=== PATIENT | female | born 1945 | race Caucasian/White ===

== ENCOUNTER 2018-01-01 09:28 | Day surgery (SDC) | payer MEDICARE, OTHER ==
[2017-12-30 14:19] VITALS: BMI 25.7
[~2018-01-01 09:28] MED LIST: HYDROmorphone 0.5 MG/0.5 ML SYRINGE IVP PRN; LACTATED RINGERS 1,000 ML IV SCH; LIDOCAINE 1% 20 ML VIAL (10MG/ML) FOR IV START INTRADERMA PRN; ONDANSETRON 4 MG/2 ML VIAL IVP PRN
[2018-01-01] MEDS ORDERED: LIDOCAINE 1% 20 ML VIAL (10MG/ML) FOR IV START INTRADERMA ONE (09:44)
[2018-01-01 09:46] VITALS: RESP 16; TEMP 97.6
[2018-01-01 09:47] LABS: Glucose,Whole Blood 110 mg/dL (75-99)
[2018-01-01] MEDS ORDERED: LIDOCAINE 1% INJ 10MG/ML (20 ML MDV) ONE (09:56)
[2018-01-01] MEDS ORDERED: PROPOFOL 10 MG/ML 20 ML VIAL IV ONE (09:56)
--- NOTE | 2018-01-01 10:16 | P.PCN ---
Date of Procedure: 01/01/18 Procedure(s) Performed: Brief history: Patient is a pleasant 72-year-old white female, scheduled for an elective upper endoscopy as well as colonoscopy as a part of evaluation of a history of GERD/ surveillance of Mijares's esophagus. She also has prior history of colon polyps was 5 years ago. Procedure performed: Esophagogastroduodenoscopy with biopsy Colonoscopy Preoperative diagnosis: GERD/Mijares's esophagus History of colon polyps Anesthesia: [facility] Procedure: After informed consent was obtained from the patient was brought into the endoscopy unit and IV sedation was administered by anesthesia under continuous monitoring. Initially upper endoscopy was done. The Olympus GF 160 video endoscope was inserted inserted into the mouth and esophagus intubated without any difficulty and was gradually advanced into the stomach and duodenum and carefully examined. The bulb and second part of the duodenum appeared normal. The scope was then withdrawn into the stomach adequately insufflated with air and upon careful examination the antrum and body, cardia and fundus appeared normal. The scope was then withdrawn into the esophagus. Small sliding hiatal hernia noted. The GE junction was located at 38 cm to the incisors. It appeared regular with no erythema erosions or ulcerations. There was a 1 cm length of Mijares's-appearing mucosa which was biopsied. Rest of the esophagus appeared normal. Patient tolerated the procedure well. At this time the patient continued to remain sedation. Initial digital rectal examination was normal. Olympus CF 160 video colonoscope was then inserted into the rectum and gradually advanced to the cecum without any difficulty. Careful examination was performed as the scope was gradually being withdrawn. The prep was excellent. The cecum, ascending colon, transverse colon, descending colon, sigmoid colon and rectum appeared normal. Scattered sigmoid diverticulosis seen. Retroflexion was performed in the rectum and no lesions were noted. Patient tolerated the procedure well. Impression: 1. Upper endoscopy revealed short segment Mijares's esophagus and small hiatal hernia 2. Colonoscopy revealed scattered similar diverticulosis but no evidence of colorectal neoplasia. Recommendations: Findings of this examination were discussed with the patient as well as her family. She was advised to follow with the biopsy results. If the biopsy shows no evidence of dysplasia, she can have a repeat upper endoscopy in 2-3 years. She was recommended to have a repeat surveillance colonoscopy in 5 is from now because of the prior history of colon polyps.
[2018-01-01 10:40] VITALS: BP 127/73; PULSE 75
== END 2018-01-01 11:03 | disposition home or self-care (01) ==
LOC: ORWHC2ENDO 09:28
PROVIDERS: ATTEND Internal Medicine Gastroenterology
DX: K22.70 Barrett's esophagus without dysplasia (principal); K21.9 Gastro-esophageal reflux disease without esophagitis; K57.30 Diverticulosis of large intestine without perforation or abscess without bleeding; K44.9 Diaphragmatic hernia without obstruction or gangrene; I10 Essential (primary) hypertension; C50.919 Malignant neoplasm of unspecified site of unspecified female breast; E78.5 Hyperlipidemia, unspecified; G43.909 Migraine, unspecified, not intractable, without status migrainosus; E11.9 Type 2 diabetes mellitus without complications; Z79.82 Long term (current) use of aspirin; Z88.8 Allergy status to other drugs, medicaments and biological substances; Z87.891 Personal history of nicotine dependence; Z79.899 Other long term (current) drug therapy; Z86.010 Personal history of colon polyps; Z79.84 Long term (current) use of oral hypoglycemic drugs; Z79.811 Long term (current) use of aromatase inhibitors
CPT/HCPCS: 88305; 45378; 43239; J2001; J2704

== ENCOUNTER → 2019-08-24 | Outpatient (CLI) | payer MEDICARE ==
[2019-08-24 14:02] LABS: HCT 46.3 % (34.0-46.0); MCH 30.3 pg (25.0-35.0); MCHC 32.5 g/dL (31.0-37.0); MCV 93.4 fL (80.0-100.0); Mean Platelet Volume 6.8; Platelet Count 248 k/uL (150-450); RBC 4.96 m/uL (3.80-5.40); RDW 12.8 % (11.5-15.5); WBC 10.1 k/uL (3.8-10.6)
[2019-08-24 19:42] LABS: % Iron Saturation 30.08 (12.00-45.00); African American GFR (CKD) 84.2 (60.0-200.0); Albumin 4.5 g/dL (3.80-4.90); Albumin/Globulin Ratio 1.8 (1.60-3.17); Anion Gap 9.6 mmol/L (4.00-12.00); BUN/Creat Ratio 31.25 Ratio (12.00-20.00); Calcium 9.4 mg/dL (8.7-10.3); Carbon Dioxide 24.4 mmol/L (21.6-31.8); Globulin 2.5 g/dL (1.6-3.3); Non-African American GFR(CKD) 72.6 (60.0-200.0); Total Bilirubin 0.3 mg/dL (0.2-1.2)
[2019-08-24 19:51] LABS: Ferritin 35.9 ng/mL (10.0-291.0)
== END | disposition home or self-care (01) ==
LOC: LABWHC1 13:28
PROVIDERS: ATTEND Internal Medicine Cardiovascular Disease
DX: E85.4 Organ-limited amyloidosis (principal); I43 Cardiomyopathy in diseases classified elsewhere; I25.10 Atherosclerotic heart disease of native coronary artery without angina pectoris
CPT/HCPCS: 36415; 80053; 82728; 83540; 83550; 84166; 84443; 85027; 86335

== ENCOUNTER → 2019-12-31 | Day surgery (SDC) | payer MEDICARE ==
[2019-12-29 15:40] VITALS: BMI 28.3
[~2019-12-31] MED LIST changes: -HYDROmorphone 0.5 MG/0.5 ML SYRINGE IVP PRN; +IV FLUID CONTINUATION 1,000 ML IV ONE; +LACTATED RINGERS 1,000 ML IV ONE; -LIDOCAINE 1% 20 ML VIAL (10MG/ML) FOR IV START INTRADERMA PRN; +LIDOCAINE 1% INJ 10MG/ML (20 ML MDV) ONE; -ONDANSETRON 4 MG/2 ML VIAL IVP PRN; +PROPOFOL 10 MG/ML 20 ML VIAL IV ONE
[2019-12-31 08:37] VITALS: RESP 16; TEMP 96.6
[2019-12-31 08:39] LABS: Glucose,Whole Blood 113 mg/dL (75-99)
--- NOTE | 2019-12-31 09:05 | P.PCN ---
Date of Procedure: 12/31/19 Procedure(s) Performed: BRIEF HISTORY: Patient is a 74-year-old, pleasant, white female scheduled for an upper endoscopy as part of evaluation of GERD and surveillance of Mijares's esophagus. She remains on Protonix 40 mg daily and Pepcid 20 mg at bedtime. Her last EGD was 2 years ago that revealed short segment Mijares's esophagus.. PROCEDURE PERFORMED: Esophagogastroduodenoscopy with biopsy PREOPERATIVE DIAGNOSIS: Surveillance of Mijares's esophagus. IV sedation per anesthesia. PROCEDURE: After informed consent was obtained, the patient was brought into the endoscopy unit. IV sedation was administered by Anesthesia under continuous monitoring. Initially the Olympus GIF-140 video endoscope was inserted into the mouth. Esophagus intubated without any difficulty. It was gradually advanced into the stomach and duodenum and carefully examined. The bulb and the second part of the duodenum appeared normal. The scope at this time was withdrawn to the stomach, adequately insufflated with air, and upon careful examination, mucosa of the antrum revealed mild diffuse gastritis with erosions and biopsies were done from this area. Mucosa of the, body, cardia and the fundus appeared normal. The scope was then withdrawn into the esophagus. Moderate size hiatal hernia noted. The GE junction was located at 34 cm from the incisors. It was a short tongue of Mijares's appearing mucosa extending 5 mm proximal to the GE junction which was biopsied The rest of the esophagus appeared normal. There were no erosions or ulcerations seen and the patient tolerated the procedure well. IMPRESSION: 1. Moderate size hiatal hernia. 2. Short segment Mijares's esophagus status post biopsy. 3. Mild antral gastritis RECOMMENDATIONS: The findings of this examination were discussed with the patient as well as her family. She was advised to follow with the biopsy results. She will continue with Protonix 40 mg daily and Pepcid at bedtime and follow antireflux measures. She can have a repeat surveillance upper endoscopy in 2-3 years based on the biopsy.
[2019-12-31 09:22] VITALS: BP 104/56; PULSE 76
== END ==
LOC: ORWHC2ENDO 08:09
PROVIDERS: ATTEND Internal Medicine Gastroenterology
DX: K29.50 Unspecified chronic gastritis without bleeding (principal); K22.70 Barrett's esophagus without dysplasia; K25.9 Gastric ulcer, unspecified as acute or chronic, without hemorrhage or perforation; K44.9 Diaphragmatic hernia without obstruction or gangrene; K21.9 Gastro-esophageal reflux disease without esophagitis; E11.9 Type 2 diabetes mellitus without complications; I10 Essential (primary) hypertension; E78.5 Hyperlipidemia, unspecified; G43.909 Migraine, unspecified, not intractable, without status migrainosus; Z88.8 Allergy status to other drugs, medicaments and biological substances; Z79.1 Long term (current) use of non-steroidal anti-inflammatories (NSAID); Z79.899 Other long term (current) drug therapy; Z79.84 Long term (current) use of oral hypoglycemic drugs; Z86.79 Personal history of other diseases of the circulatory system; Z91.89 Other specified personal risk factors, not elsewhere classified
CPT/HCPCS: 43239; 88305; J2001; J2704

== ENCOUNTER → 2021-10-19 | Outpatient (CLI) | payer MEDICARE | END | disposition home or self-care (01) | LOC: LABPAT 10:32 | PROVIDERS: ATTEND Orthopaedic Surgery | DX: Z01.812 Encounter for preprocedural laboratory examination (principal); M16.11 Unilateral primary osteoarthritis, right hip; Z22.322 Carrier or suspected carrier of Methicillin resistant Staphylococcus aureus | CPT/HCPCS: 86850; 86900; 86901; 87070 ==

== ENCOUNTER 2021-10-29 10:49 | Day surgery (SDC) | payer MEDICARE ==
--- NOTE | 2021-10-29 08:13 | HP ---
HISTORY AND PHYSICAL DATE OF SURGERY: 10/29/2021. HISTORY OF PRESENT ILLNESS: Fay Antonio is a 76-year-old patient seen with progressive right hip pain. We discussed options. She elected to proceed with direct anterior total hip arthroplasty. Consent was obtained. Medical and cardiac clearances were provided. PAST MEDICAL HISTORY: Hypertension, hyperlipidemia, and uej-[id number]-jupgmcyvv diabetes. PAST SURGICAL HISTORY: Breast reduction surgery, cataract surgery, hysterectomy, total knee arthroplasty, knee arthroscopy, and abdominal surgery. DAILY MEDICATIONS: 1. Celebrex. 2. Flonase. 3. Lovastatin. 4. Metformin. 5. Metoprolol. ALLERGIES: None reported. SOCIAL HISTORY: She denies tobacco use. PHYSICAL EVALUATION OF THE RIGHT HIP: Her range of motion is limited with severe pain. There is diffuse tenderness. Positive hip impingement sign. Straight-leg raise is negative. Distal neurovascular exam is intact. RADIOGRAPHS OF THE RIGHT HIP: Revealed osteoarthritic changes. IMPRESSION: 1. Right hip osteoarthritis. 2. Hypertension. 3. Hyperlipidemia. 4. Iks-dyhzsjg-cffmebadc diabetes. PLAN: Direct anterior right total hip arthroplasty. MMODL / IJN: [id number] /
[~2021-10-29 10:49] MED LIST changes: +ACETAMINOPHEN TAB 500 MG TAB PO PRN; +DEXAMETHASONE SOD PHOSPHATE 4 MG/ML 1 ML VIAL IV ONE; +HYDROmorphone 0.5 MG/0.5 ML SYRINGE IVP PRN; -IV FLUID CONTINUATION 1,000 ML IV ONE; -LACTATED RINGERS 1,000 ML IV ONE; -LIDOCAINE 1% INJ 10MG/ML (20 ML MDV) ONE; +MELOXICAM 7.5 MG TAB PO PRN; +MIDAZOLAM 2 MG/2 ML VIAL IV PRN; +ONDANSETRON 4 MG/2 ML VIAL IVP ONE; -PROPOFOL 10 MG/ML 20 ML VIAL IV ONE; +TRANEXAMIC ACID IN NACL,ISO-OS 1,000 MG in SALINE 1 100ML.BAG IVPB PRN
[2021-10-29 12:01] LABS: Glucose,Whole Blood 101 mg/dL (70-110)
[2021-10-29] MEDS ORDERED: fentaNYL (PF) 50 MCG/ML 2 ML AMP IV ONE (12:15)
[2021-10-29] MEDS ORDERED: ROPIVACAINE 5 MG/ML 20 ML AMPULE ONE (12:28)
[2021-10-29] MEDS ORDERED: LIDOCAINE 2% INJ 20 MG/ML (2 ML VIAL) ONE (12:28)
[2021-10-29] MEDS ORDERED: TRANEXAMIC ACID IN NACL,ISO-OS 1,000 MG/100 ML BAG ONE (12:28)
[2021-10-29] MEDS ORDERED: PROPOFOL 10 MG/ML 20 ML VIAL IV ONE (12:28)
[2021-10-29] MEDS ORDERED: GLYCOPYRROLATE 0.2 MG/ML 2 ML VIAL ONE (12:28)
[2021-10-29] MEDS ORDERED: PHENYLEPHRINE-0.9% NACL SYG 1,000 MCG/10 ML SYRINGE ONE (12:28)
[2021-10-29] MEDS ORDERED: ROCURONIUM 10 MG/ML (5 ML VIAL) IV ONE (12:28)
[2021-10-29] MEDS ORDERED: fentaNYL (PF) 50 MCG/ML 2 ML AMP ONE (12:28)
[2021-10-29] MEDS ORDERED: NEOSTIGMINE 1 MG/ML 10 ML VIAL ONE (12:28)
[2021-10-29] MEDS ORDERED: SUCCINYLCHOLINE CHLORIDE 200 MG/10 ML VIAL IV ONE (12:28)
--- NOTE | 2021-10-29 13:05 | P.ANPRN ---
Procedure Note - Anesthesia - Nerve Block Performed Right Erector Spinae Single Time Out Performed: Yes (1214) Date of Procedure: 10/29/21 Procedure Start Time: 12:15 Procedure Stop Time: 12:19 Location of Patient: PreOp Indication: Acute Post-Operative Pain, Requested by Surgeon Specifically requested for management of pain by : Toney Hanna Sedation Type: Sedate with meaningful contact maintained Preparation: Sterile Prep Position: Sitting Catheter: None Needle Types: Pajunk Needle Gauge: 21 Ultrasound used to visualize needle placement: Yes Ultrasound used to observe medication spread: Yes Injectate: 0.5% Ropivacaine (see comment for volume) (30cc) Blood Aspirated: No Pain Paresthesia on Injection Noted: No Resistance on Injection: Normal Image Stored and Saved: Yes Events: Uneventful and Well Tolerated
[2021-10-29] MEDS ORDERED: ceFAZolin 1,000 MG in SODIUM CHLORIDE 0.9% 1,000 ML IRRIGATION ONE (13:43)
--- NOTE | 2021-10-29 13:53 | FL ---
Intraoperative/procedural fluoroscopic services were provided for right total hip arthroplasty. Hardw are appears intact with appropriate alignment.. Total fluoroscopy time is 14 seconds with a total of 3 submitted images to PACS. Please see the operative note for further details.
[2021-10-29] MEDS ORDERED: HYDROmorphone 0.5 MG/0.5 ML SYRINGE IVP PRN ×3 (14:02)
[2021-10-29] MEDS ORDERED: NALOXONE 0.4 MG/ML 1 ML VIAL IV PRN (14:02)
[2021-10-29] MEDS ORDERED: HYDROcodone/APAP 7.5-325MG 1 EACH TAB PO PRN (14:02)
[2021-10-29] MEDS ORDERED: HYDROcodone/APAP 5-325MG 1 EACH TAB PO PRN (14:02)
[2021-10-29] MEDS ORDERED: ONDANSETRON 4 MG/2 ML VIAL IVP PRN (14:02)
--- NOTE | 2021-10-29 14:02 | P.OP ---
Date of Procedure: 10/29/21 Preoperative Diagnosis: Right hip osteoarthritis Postoperative Diagnosis: Right hip osteoarthritis Procedure(s) Performed: Direct anterior right total hip arthroplasty Implants: 1. Depuy Corail 135 standard with collar size 8 press-fit femoral stem 2. Depuy pinnacle 48 mm press-fit acetabular shell 3. Depuy pinnacle neutral polyethylene acetabular liner 48 mm OD 32 mm ID 4. Biolox delta ceramic femoral head +1 32 mm Anesthesia: GETA, regional (erector spinae block) Surgeon: Toney Hanna Shore Hand Dredge Or Barge #1: Mart Mathias Estimated Blood Loss (ml): 75 Pathology: other (Femoral head) Condition: stable Disposition: PACU Indications for Procedure: 76-year-old patient seen with symptomatic right hip osteoarthritis. After treatment options were discussed, she elected to proceed with total hip arthroplasty. Operative Findings: See description of procedure Description of Procedure: The patient was taken to the operative suite after having an erector spinae block performed by the department of anesthesia for postoperative pain management. Patient underwent a general anesthetic by the department of anesthesia. Patient was then transferred to the Burton table. Patient was given preoperative IV antibiotics and TXA. Both lower extremities were placed in standard leg spars. The hip was then prepped and draped in the normal sterile orthopedic fashion. A standard anterior incision was made beginning 3 cm lateral and 1 cm distal to the ASIS extending 10 cm. Dissection was then carried down through the subcutaneous soft tissues down to the fascia overlying the tensor fascia rubina. An incision was now made through the fascia. Careful dissection was taken down exposing the tensor fascia rubina muscle. A Cobra retractor was now placed along the medial femoral neck and a second one along the lateral femoral neck. The venous circumflex vessels were now identified, cauterized and clipped. We identified the anterior hip capsule. An incision was made through the hip capsule along the lateral border. I performed a partial anterior capsulectomy. Retractors were now placed around the femoral neck itself. A femoral neck cut was now made with a sagittal saw. It was completed with an osteotome at the lateral neck area. The femoral head was now removed without difficulty. The extremity was now rotated to 60 of external rotation. It was locked in position. Residual labrum was now debrided out. Serial reaming was performed of the acetabulum while Alex LOJA assisted holding an anterior retractor for exposure. Once we reached the appropriate size and a trial was position and fit nicely. The appropriate size was now chosen opened and made available. It was introduced into the acetabulum without difficulty. The C-arm/fluoroscopy was now brought into the operative field. We made sure we had a true AP pelvic view. We now under direct C-arm/fluoroscopy introduced into the acetabular component with appropriate version and inclin ation. I held the cup in appropriate position well Alex LOJA used a mallet to seat the acetabular component. I noted the component now to be well seated and stable. Acetabular cup introduce her was removed. The C-arm was pulled back. An appropriate liner was introduced and clicked into position. It was felt to be stable. At this point retractors were removed. The extremity was now placed into 130 external rotation with no traction. The leg was now dropped to the ground and adducted. Appropriate retractors were now positioned along the proximal femur. We also placed our femoral look into position. Additional capsular releasing was performed to gain access to the proximal femur. We now used a box osteotome. A canal finder was now utilized. Serial broaching was now performed with the assistance of Alex LOJA tapping the broaches down with a mallet while held the broach in appropriate rotation and position. This was done until we reached the appropriate size with good overall rotational stability. Appropriate calcar planing was performed. A trial head/neck was placed into position. The hip was now reduced. The C- arm/fluoroscopy was brought back into the operative field. I obtained an AP pelvis which demonstrated adequate leg length alignment. The trial components appeared adequately sized and adequately positioned. The C-arm/fluoroscopy was pulled back. Retractors were repositioned and the hip was dislocated. The leg was again taken down to the ground and adducted. Appropriate retractors were repositioned as well as the femoral hook. All trial components were removed. The femoral implant was opened along with the femoral head. The femoral implant was introduced on the appropriate handle into our pre-broached area. I held the component position well Alex LOJA used a mallet to seat the femoral component. The femoral component was now noted to be well seated and stable.. The femoral head was introduced with good positioning and fixation noted. Retractors were now removed. The hip was now reduced. There appeared be good positioning of the hip confirmed on intraoperative fluoroscopy. Spot films were obtained to document this. A second gram of TXA was given. The deep and superficial soft tissues were infiltrated with local analgesic. Bipolar cautery had been utilized intermittently through the procedure for hemostasis. The wound was irrigated copiously with pulse lavage mechanical irrigation. The fascia was repaired with Vicryl suture. The subcutaneous soft tissues were repaired in layers with Vicryl suture. The skin was approximated with pernio/Dermabond. Sterile dressings were applied. Patient was then awakened, transferred to a bed and taken to recovery in stable condition. Alex LOJA assisted with the complex procedure.
[2021-10-29 14:32] VITALS: TEMP 97
[2021-10-29] MEDS: LACTATED RINGERS 1,000 ML IV ONE ×2 (15:21→15:33)
--- NOTE | 2021-10-29 15:32 | XR ---
EXAMINATION TYPE: XR Hip Limited RT DATE OF EXAM: 10/29/2021 Comparison: None Clinical History: 76-year-old female Rt. Hip-Ant Findings: 14 seconds of fluoroscopy time was provided during anterior right hip replacement. 3 images are provi ded. Impression: Intraoperative fluoroscopy during right hip total arthroplasty.
[2021-10-29 17:07] VITALS: BP 148/84; PULSE 77; RESP 15
== END 2021-10-29 17:34 | disposition home health service (06) ==
LOC: OR 10:49
PROVIDERS: ATTEND Orthopaedic Surgery
DX: M16.11 Unilateral primary osteoarthritis, right hip (principal); G89.18 Other acute postprocedural pain; I10 Essential (primary) hypertension; E11.69 Type 2 diabetes mellitus with other specified complication; E78.5 Hyperlipidemia, unspecified; E11.42 Type 2 diabetes mellitus with diabetic polyneuropathy; K21.9 Gastro-esophageal reflux disease without esophagitis; G43.909 Migraine, unspecified, not intractable, without status migrainosus; K58.9 Irritable bowel syndrome, unspecified; Z88.8 Allergy status to other drugs, medicaments and biological substances; Z79.84 Long term (current) use of oral hypoglycemic drugs; Z79.899 Other long term (current) drug therapy; Z87.891 Personal history of nicotine dependence
CPT/HCPCS: 97110; 97161; 64999; 88300; 73501; 27130; C1776; J2250; J0330; J1100; J2710; J0690 ×2; J2405; J3010; J2370; J2704; J1170; J2795; J2001; 86850; 86900; 86901; 87070

== ENCOUNTER 2022-08-06 08:35 | Day surgery (SDC) | payer MEDICARE ==
[2022-08-02 17:20] VITALS: BMI 28.3
[~2022-08-06 08:35] MED LIST changes: -ACETAMINOPHEN TAB 500 MG TAB PO PRN; -DEXAMETHASONE SOD PHOSPHATE 4 MG/ML 1 ML VIAL IV ONE; -HYDROmorphone 0.5 MG/0.5 ML SYRINGE IVP PRN; +LIDOCAINE 1% (10MG/ML) FOR IV START INTRADERMA PRN; -MELOXICAM 7.5 MG TAB PO PRN; -MIDAZOLAM 2 MG/2 ML VIAL IV PRN; -ONDANSETRON 4 MG/2 ML VIAL IVP ONE; -TRANEXAMIC ACID IN NACL,ISO-OS 1,000 MG in SALINE 1 100ML.BAG IVPB PRN
[2022-08-06 09:19] VITALS: TEMP 97.2
[2022-08-06 09:22] LABS: Glucose,Whole Blood 116 mg/dL (70-110)
[2022-08-06] MEDS ORDERED: PROPOFOL 10 MG/ML 20 ML VIAL IV ONE (09:29)
[2022-08-06] MEDS ORDERED: LIDOCAINE 2% INJ 20 MG/ML (2 ML VIAL) ONE (09:29)
--- NOTE | 2022-08-06 09:38 | P.PCN ---
Date of Procedure: 08/06/22 Procedure(s) Performed: BRIEF HISTORY: Patient is a 77-year-old, pleasant, at female scheduled for an upper endoscopy as a part of evaluation of long-standing history of GERD and Mijares's esophagus.. PROCEDURE PERFORMED: Esophagogastroduodenoscopy with biopsy. PREOPERATIVE DIAGNOSIS: GERD/Mijares's esophagus. IV sedation per anesthesia. PROCEDURE: After informed consent was obtained, the patient was brought into the endoscopy unit. IV sedation was administered by Anesthesia under continuous monitoring. Initially the Olympus GIF-140 video endoscope was inserted into the mouth. Esophagus intubated without any difficulty. It was gradually advanced into the stomach and duodenum and carefully examined. The bulb and the second part of the duodenum appeared normal. The scope at this time was withdrawn to the stomach, adequately insufflated with air, and upon careful examination, mucosa of the antrum, body, cardia and the fundus appeared normal. The scope was then withdrawn into the esophagus. Small hiatal hernia noted The GE junction was located at 35 cm from the incisors. There was a short segment of Mijares's esophagus extending from 34-35 cm from the incisors and biopsies were done area. The rest of the esophagus appeared normal. There were no erosions or ulcerations seen and the patient tolerated the procedure well. IMPRESSION: 1. Small hiatal hernia. 2. Short segment Mijares's esophagus extending from 34-35 cm from the incisors status post biopsy. RECOMMENDATIONS: The findings of this examination were discussed with the patient as well as her family. She was advised to follow with the biopsy results. Continue with pantoprazole 20 mg daily and follow antireflux m easures.. If the biopsy confirms the presence of Mijares's esophagus he can have a repeat upper endoscopy in 3 years
[2022-08-06 10:05] VITALS: BP 129/76; PULSE 67; RESP 16
== END 2022-08-06 10:23 | disposition home or self-care (01) ==
LOC: ORWHC2ENDO 08:35
PROVIDERS: ATTEND Internal Medicine Gastroenterology
DX: K22.70 Barrett's esophagus without dysplasia (principal); K21.9 Gastro-esophageal reflux disease without esophagitis; K44.9 Diaphragmatic hernia without obstruction or gangrene; Z98.890 Other specified postprocedural states
CPT/HCPCS: 88305; 43239; J2704; J2001

== ENCOUNTER → 2022-08-21 | Outpatient (CLI) | payer MEDICARE ==
[2022-08-21 20:39] LABS: BUN/Creat Ratio 29.33 Ratio (12.00-20.00); Blood Urea Nitrogen 26.4 mg/dL (9.0-27.0); Carbon Dioxide 24.4 mmol/L (21.6-31.8); Chloride 107 mmol/L (96-109); Glucose 101 mg/dL (70-110); Potassium 5.5 mmol/L (3.5-5.5); Sodium 143 mmol/L (135-145)
== END | disposition home or self-care (01) ==
LOC: LABWHC1 11:37
PROVIDERS: ATTEND Internal Medicine Cardiovascular Disease
DX: I42.8 Other cardiomyopathies (principal); I50.9 Heart failure, unspecified; I51.9 Heart disease, unspecified
CPT/HCPCS: 36415; 80048

== ENCOUNTER → 2022-09-05 | Outpatient (CLI) | payer MEDICARE ==
[2022-09-05 16:53] LABS: NT-Pro-B-Type Natriuretic Pept 115 pg/mL
[2022-09-06 02:58] LABS: Calcium 9.5 mg/dL (8.7-10.3); Carbon Dioxide 20.2 mmol/L (21.6-31.8); Chloride 108 mmol/L (96-109); Glucose 123 mg/dL (70-110); Magnesium 1.9 mg/dL (1.5-2.4); Potassium 4.1 mmol/L (3.5-5.5); Sodium 142 mmol/L (135-145)
== END | disposition home or self-care (01) ==
LOC: LABWHC1 16:05
PROVIDERS: ATTEND Internal Medicine Cardiovascular Disease
DX: I42.8 Other cardiomyopathies (principal); I51.9 Heart disease, unspecified
CPT/HCPCS: 36415; 80048; 83735; 83880

== ENCOUNTER → 2022-09-30 | Outpatient (CLI) | payer MEDICARE ==
[2022-09-30 17:04] LABS: NT-Pro-B-Type Natriuretic Pept 205 pg/mL
[2022-10-01 02:55] LABS: Blood Urea Nitrogen 26.2 mg/dL (9.0-27.0); Carbon Dioxide 18.5 mmol/L (21.6-31.8); Chloride 107 mmol/L (96-109); Glucose 84 mg/dL (70-110); Potassium 4.7 mmol/L (3.5-5.5); Sodium 139 mmol/L (135-145)
== END | disposition home or self-care (01) ==
LOC: LABWHC1 15:20
PROVIDERS: ATTEND Internal Medicine Cardiovascular Disease
DX: I50.9 Heart failure, unspecified (principal)
CPT/HCPCS: 36415; 80048; 83735; 83880

== ENCOUNTER 2022-11-20 07:55 | Day surgery (SDC) | payer MEDICARE ==
[2022-11-15 11:29] VITALS: BMI 28.3
[2022-11-20 08:19] VITALS: RESP 16; TEMP 96.6
[2022-11-20 08:32] LABS: Glucose,Whole Blood 138 mg/dL (70-110)
[2022-11-20] MEDS ORDERED: PROPOFOL 10 MG/ML 20 ML VIAL IV ONE (08:48)
--- NOTE | 2022-11-20 09:02 | P.PCN ---
Date of Procedure: 11/20/22 Procedure(s) Performed: BRIEF HISTORY: Patient is a 77-year-old pleasant female scheduled for an elective colonoscopy as a part of evaluation of prior history of colon polyps. Last colonoscopy was 5 years ago. PROCEDURE PERFORMED: Colonoscopy with biopsy. PREOPERATIVE DIAGNOSIS: History of colon polyps. IV sedation per Anesthesia. PROCEDURE: After informed consent was obtained, the patient, was brought into the endoscopy unit. IV sedation was administered by Anesthesia under continuous monitoring. Digital rectal examination was normal. Initially the Olympus CF-160 flexible video colonoscope was then inserted in the rectum, gradually advanced into the cecum without any difficulty. Careful examination was performed as the scope was gradually being withdrawn. Ileocecal valve and the appendiceal orifice were visualized and appeared normal. Prep was excellent. Mucosa of the cecum, ascending colon, appeared normal. In the transverse colon there was a 2 mm polyp that was removed by cold biopsy. Rest of the transverse colon, descending colon, sigmoid colon, and rectum appeared normal. Scattered sigmoid diverticulosis. Retroflexion was performed in the rectum and no lesions were seen. The patient tolerated the procedure well. IMPRESSION: 2 mm transverse colon polyp status post cold biopsy Scattered sigmoid diverticulosis RECOMMENDATIONS: Findings of this examination were discussed with the patient as well as a family. She was advised to follow with the biopsy results. Con tinue with a high-fiber diet and fiber supplements on a regular basis..
[2022-11-20 09:27] VITALS: BP 131/77; PULSE 70
== END 2022-11-20 09:35 | disposition home or self-care (01) ==
LOC: ORWHC2ENDO 07:55
PROVIDERS: ATTEND Internal Medicine Gastroenterology
DX: D12.3 Benign neoplasm of transverse colon (principal); K57.30 Diverticulosis of large intestine without perforation or abscess without bleeding; I10 Essential (primary) hypertension; E78.5 Hyperlipidemia, unspecified; E11.9 Type 2 diabetes mellitus without complications; K21.9 Gastro-esophageal reflux disease without esophagitis; Z88.8 Allergy status to other drugs, medicaments and biological substances; Z79.4 Long term (current) use of insulin; Z79.01 Long term (current) use of anticoagulants; Z79.899 Other long term (current) drug therapy; Z87.891 Personal history of nicotine dependence; Z86.010 Personal history of colon polyps; Z98.890 Other specified postprocedural states
CPT/HCPCS: 88305; 45380; J2704

== ENCOUNTER 2023-11-21 12:15 | Emergency (ER) | payer MEDICARE ==
[2023-11-21 12:46] VITALS: RESP 18; TEMP 98.6
--- NOTE | 2023-11-21 13:29 | ED ---
General Adult HPI - General Source: patient Mode of arrival: ambulatory Limitations: no limitations <Corin Sims - Last Filed: 11/21/23 13:26> - General Source: patient Mode of arrival: ambulatory Limitations: no limitations <Kemi Trujillo - Last Filed: 11/21/23 23:38> - General Chief complaint: Recheck/Abnormal Lab/Rx Stated complaint: Back pain,Sore throat-Sent by PCP Time Seen by Provider: 11/21/23 13:26 - History of Present Illness Initial comments: 78-year-old female presenting with chief complaint of chest pressure. Patient has Mijares's esophagus and was having worsening GERD like symptoms last night. When she told her PCP about this they sent her here for cardiac workup (Corin Sims) This is a 78-year-old female who presents to the emergency department for chest pain/worsening GERD. Patient states that she has a history of Mijares's esophagus and last night started to develop chest pain, worsening heartburn, nausea, and diaphoresis. This seemed worse than her typical GERD symptoms. She has also had a cough that seems to be getting worse. She spoke with Dr. Porras GI, who advised she have her heart evaluated due to the symptoms. 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 Denies any history of heart attacks. Denies any shortness of breath. Symptoms are currently much better than they were last night. (Kemi Trujillo) - Related Data Home Medications Medication Instructions Recorded Confirmed Celecoxib [CeleBREX] 200 mg PO DAILY 12/07/13 11/20/22 Lovastatin [Mevacor] 20 mg PO HS 12/07/13 11/20/22 Pantoprazole Sodium [Protonix] 20 mg PO DAILY 12/07/13 11/20/22 Calcium Carbonate/Vitamin D3 1 tab PO DAILY 12/14/14 11/20/22 [Calcium 600-Vit D3 400 Tablet] Multivitamins, Thera [Multivitamin 1 tab PO DAILY 12/14/14 11/20/22 (formulary)] Cholecalciferol [Vitamin D3 (25 1,000 unit PO DAILY 12/29/19 11/20/22 Mcg = 1000 Iu)] Metoprolol Succinate [Toprol XL] 50 mg PO BID 12/29/19 11/20/22 Sacubitril/Valsartan [Entresto 97 1 each PO BID 12/29/19 11/20/22 mg-103 mg Tablet] Cyanocobalamin (Vitamin B-12) 1,000 mcg PO DAILY 10/24/21 11/20/22 [Vitamin B-12] Magnesium 250 mg PO DAILY 10/24/21 11/20/22 Propranolol [Inderal] 40 mg PO BID 10/24/21 11/20/22 metFORMIN HCL [Glucophage] 500 mg PO BID 10/24/21 11/20/22 Previous Rx's Medication Instructions Recorded Azithromycin [Zithromax] 250 mg PO DIRECTED 5 Days #6 tab 11/21/23 Benzonatate [Tessalon Perle] 200 mg PO TID PRN #30 capsule 11/21/23 Allergies Allergy/AdvReac Type Severity Reaction Status Date / Time lisinopril Allergy throat and Verified 11/21/23 12:46 tongue swelling Review of Systems ROS Other: All systems not noted in ROS Statement are negative. <Corin Sims - Last Filed: 11/21/23 13:26> ROS Other: All systems not noted in ROS Statement are negative. <Kemi Trujillo - Last Filed: 11/21/23 23:38> ROS Statement: Those systems with pertinent positive or pertinent negative responses have been documented in the HPI. Past Medical History Past Medical History: Cancer, Diabetes Mellitus, GERD/Reflux, Hyperlipidemia, Hypertension, Osteoarthritis (OA) Additional Past Medical History / Comment(s): LEFT BREAST CANCER 12/2011 WITH RADIATION, hx migraines, barretts esophagus, hiatal hernia History of Any Multi-Drug Resistant Organisms: None Reported Past Surgical History: Adenoidectomy, Breast Surgery, Hysterectomy, Joint Replacement, Orthopedic Surgery, Tonsillectomy Additional Past Surgical History / Comment(s): LEFT BREAST lumpectomy, CATARACT SURGERY, VAZQUEZ SHOULDER SURG., RIGHT KNEE REPLACED, RIGHT HIP REPLACED, abdominoplasty, vazquez breast reduction, COLONOSCOPY, EGD Past Anesthesia/Blood Transfusion Reactions: Postoperative Nausea & Vomiting (PONV) Additional Past Anesthesia/Blood Transfusion Reaction / Comment(s): headaches post op Past Psychological History: No Psychological Hx Reported Smoking Status: Former smoker Past Alcohol Use History: None Reported - Past Family History Mother Family Medical History: Cancer Father Family Medical History: Cancer Brother(s) Family Medical History: Cancer Additional Family Medical History / Comment(s): BLADDER <Corin Sims - Last Filed: 11/21/23 13:26> General Exam Limitations: no limitations <Corin Sims - Last Filed: 11/21/23 13:26> Limitations: no limitations General appearance: alert, in no apparent distress Head exam: Present: atraumatic, normocephalic, normal inspection Respiratory exam: Present: normal lung sounds bilaterally. Absent: respiratory distress, wheezes, rales, rhonchi, stridor Cardiovascular Exam: Present: regular rate, normal rhythm, normal heart sounds. Absent: systolic murmur, diastolic murmur, rubs, gallop, clicks GI/Abdominal exam: Present: soft, normal bowel sounds. Absent: distended, tenderness, guarding, rebound, rigid Neurological exam: Present: alert, oriented X3, CN II-XII intact Psychiatric exam: Present: normal affect, normal mood Skin exam: Present: warm, dry, intact, normal color. Absent: rash <Kemi Trujillo - Last Filed: 11/21/23 23:38> - General Exam Comments Initial Comments: Visual Physical Exam Vital signs reviewed General: Well-appearing, nontoxic, no acute distress. Head: Normocephalic, atraumatic Eyes: PERRLA, EOMI ENT: Airway patent Chest: Nonlabored breathing Skin: No visual rash, normal skin tone Neuro: Alert and oriented 3 Musculoskeletal: No gross abnormalities (Corin Sims) Course Vital Signs 11/21/23 11/21/23 12:43 18:55 Temperature 98.6 F Pulse Rate 95 70 Respiratory 18 18 Rate Blood Pressure 100/67 100/78 O2 Sat by Pulse 96 98 Oximetry Medical Decision Making <Corin Sims - Last Filed: 11/21/23 13:26> - Lab Data Result diagrams: 11/21/23 13:14 11/21/23 13:14 - Radiology Data Radiology results: report reviewed, image reviewed <Kemi Trujillo - Last Filed: 11/21/23 23:38> - Medical Decision Making I performed the quick note portion of this visit, electronically signed Corin Sims PA-C (Corin Sims) This is a 78 year old female who presents to the emergency department for chest pain and GERD. Was pt. sent in by a medical professional or institution? @ -NOÉ Sims Did you speak to anyone other than the patient for history? @ -No Did you review nursing and triage notes? @ -Yes, and I agree, it is accurate with regards to the patient's symptoms. Were old charts reviewed? @ -No Differential Diagnosis? @ -Differential Chest Pain: Stable Angina, Unstable Angina, STEMI, NSTEMI Aortic Dissection, Pneumothorax, Musculoskeletal, Esophageal Spasm GERD, Cholecystitis, Pancreatitis, Zoster, this is not meant to be an all-inclusive list. EKG interpreted by me (3pts min.)? @ -EKG interpreted by me demonstrating the following: Sinus rhythm. Ventricular rate 94 bpm, NE interval 153 ms, QRS duration 101 ms, QTc 398 ms. X-rays interpreted by me (1pt min.)? @ -Chest x-ray obtained. My interpretation identifies no evidence of a pleural effusion. CT interpreted by me (1pt min.)? @ -CTA of the chest obtained. My interpretation identifies no evidence of a pulmonary embolus. U/S interpreted by me (1pt. min.)? @ -Not obtained What testing was considered but not performed? (CT, X-rays, U/S, labs)? Why? @ -Not obtained What meds were considered but not given? Why? @ -None Did you discuss the management of the patient with other professionals? @ -No Did you reconcile home meds? @ -No Was smoking cessation discussed for >3mins.? @ -No Was critical care preformed (if so, how long)? @ -No Were there social determinants of health that impacted care today? How? (Homelessness, low income, unemployed, alcoholism, drug addiction, tr ansportation, low edu. Level, literacy, decrease access to med. care, penitentiary, rehab)? @ -No Was there de-escalation of care discussed even if they declined? (Discuss DNR or withdrawal of care, Hospice)? @ -No What co-morbidities impacted this encounter? (DM, HTN, Smoking, COPD, CAD, Cancer, CVA, Hep., AIDS, mental health diagnosis, sleep apnea, morbid obesity)? @ -DM, HLD, HTN Was patient admitted / discharged? @ -Discharged. Lab work demonstrates leukocytosis and was otherwise unremarkable. Troponin negative x 2. Chest x-ray demonstrates basilar atelectasis versus pneumonia. Given the leukocytosis and the progressive cough she has had, advised further confirmation with a CT scan. We did proceed with a CTA to evaluate for any evidence of a pulmonary embolus as well. No evidence of a pulmonary embolus was identified. There were scattered interstitial opacities suggestive of atypical pneumonia. Findings reviewed with the patient. I did offer admission given her age and comorbidities, however the patient declined and states that she would rather go home. She was given 1 g of Rocephin and 500 mg of azithromycin in the emergency department. Prescription for azithromycin and Tessalon Perles provided with dosing instructions reviewed. She was given strict return parameters and advised to have close follow-up with her primary care provider. Patient discharged home in stable condition. Case discussed with ED attending Dr. Sandra. Return precautions reviewed in depth, the patient is instructed to return to the emergency department with any new, worsening, or concerning symptoms. Patient verbalized understanding. Undiagnosed new problem with uncertain prognosis? @ -None Drug Therapy requiring intensive monitoring for toxicity (Heparin, Nitro, Insulin, Cardizem)? @ -None Were any procedures done? @ -None Diagnosis/symptom? @ -Pneumonia Acute, or Chronic, or Acute on Chronic? @ -Acute Uncomplicated (without systemic symptoms) or Complicated (systemic symptoms)? @ -Uncomplicated Side effects of treatment? @ -None Exacerbation, Progression, or Severe Exacerbation] @ -Not applicable Poses a threat to life or bodily function? @ -Unlikely (Kemi Trujillo) - Lab Data Lab Results 11/21/23 11/21/23 11/21/23 Range/Units 13:14 13:14 13:14 WBC 15.2 H (3.8-10.6) k/uL RBC 4.39 (3.80-5.40) m/uL Hgb 13.7 (11.4-16.0) gm/dL Hct 41.4 (34.0-46.0) % MCV 94.3 (80.0-100.0) fL MCH 31.3 (25.0-35.0) pg MCHC 33.2 (31.0-37.0) g/dL RDW 12.9 (11.5-15.5) % Plt Count 299 (150-450) k/uL MPV 6.7 Neutrophils % 87 % Lymphocytes % 7 % Monocytes % 5 % Eosinophils % 0 % Basophils % 0 % Neutrophils # 13.1 H (1.3-7.7) k/uL Lymphocytes # 1.1 (1.0-4.8) k/uL Monocytes # 0.7 (0-1.0) k/uL Eosinophils # 0.1 (0-0.7) k/uL Basophils # 0.0 (0-0.2) k/uL PT 10.3 (10.0-12.5) sec INR 0.9 (<1.2) APTT 24.8 (22.0-30.0) sec Sodium 137 (137-145) mmol/L Potassium 4.5 (3.5-5.1) mmol/L Chloride 103 (98-107) mmol/L Carbon Dioxide 23 (22-30) mmol/L Anion Gap 11 mmol/L BUN 22 H (7-17) mg/dL Creatinine 1.01 (0.52-1.04) mg/dL Est GFR (CKD-EPI)AfAm 62 (>60 ml/min/1.73 sqM) Est GFR (CKD-EPI)NonAf 54 (>60 ml/min/1.73 sqM) Glucose 140 H (74-99) mg/dL Calcium 9.4 (8.4-10.2) mg/dL Magnesium 1.7 (1.6-2.3) mg/dL Total Bilirubin 0.8 (0.2-1.3) mg/dL AST 34 (14-36) U/L ALT 21 (4-34) U/L Alkaline Phosphatase 62 (38-126) U/L Troponin I (0.000-0.034) ng/mL Total Protein 7.3 (6.3-8.2) g/dL Albumin 4.4 (3.5-5.0) g/dL 11/21/23 11/21/23 Range/Units 13:14 17:22 WBC (3.8-10.6) k/uL RBC (3.80-5.40) m/uL Hgb (11.4-16.0) gm/dL Hct (34.0-46.0) % MCV (80.0-100.0) fL MCH (25.0-35.0) pg MCHC (31.0-37.0) g/dL RDW (11.5-15.5) % Plt Count (150-450) k/uL MPV Neutrophils % % Lymphocytes % % Monocytes % % Eosinophils % % Basophils % % Neutrophils # (1.3-7.7) k/uL Lymphocytes # (1.0-4.8) k/uL Monocytes # (0-1.0) k/uL Eosinophils # (0-0.7) k/uL Basophils # (0-0.2) k/uL PT (10.0-12.5) sec INR (<1.2) APTT (22.0-30.0) sec Sodium (137-145) mmol/L Potassium (3.5-5.1) mmol/L Chloride (98-107) mmol/L Carbon Dioxide (22-30) mmol/L Anion Gap mmol/L BUN (7-17) mg/dL Creatinine (0.52-1.04) mg/dL Est GFR (CKD-EPI)AfAm (>60 ml/min/1.73 sqM) Est GFR (CKD-EPI)NonAf (>60 ml/min/1.73 sqM) Glucose (74-99) mg/dL Calcium (8.4-10.2) mg/dL Magnesium (1.6-2.3) mg/dL Total Bilirubin (0.2-1.3) mg/dL AST (14-36) U/L ALT (4-34) U/L Alkaline Phosphatase (38-126) U/L Troponin I <0.012 <0.012 (0.000-0.034) ng/mL Total Protein (6.3-8.2) g/dL Albumin (3.5-5.0) g/dL Disposition <Corin Sims - Last Filed: 11/21/23 13:26> Is patient prescribed a controlled substance at d/c from ED?: No Time of Disposition: 18:39 <Kemi Trujillo - Last Filed: 11/21/23 23:38> Clinical Impression: Pneumonia Disposition: HOME SELF-CARE Condition: Fair Instructions (If sedation given, give patient instructions): Pneumonia (ED) Additional Instructions: Return to the emergency department with any new, worsening, or concerning symptoms. Take the antibiotic as prescribed for 5 days. Take the Tessalon Perles up to every 8 hours as needed for coughing. Follow up with your primary care provider in 1-2 days. Prescriptions: Benzonatate [Tessalon Perle] 200 mg PO TID PRN #30 capsule PRN Reason: Cough Azithromycin [Zithromax] 250 mg PO DIRECTED 5 Days #6 tab Referrals: Theresa Fernandez MD [Primary Care Provider] - 1-2 days
[2023-11-21 13:37] LABS: Basophils % (A) 0 %; Eosinophils # (A) 0.1 k/uL (0-0.7); Eosinophils % (A) 0 %; HCT 41.4 % (34.0-46.0); HGB 13.7 gm/dL (11.4-16.0); Lymphocytes # (A) 1.1 k/uL (1.0-4.8); Lymphocytes % (A) 7 %; MCH 31.3 pg (25.0-35.0); MCHC 33.2 g/dL (31.0-37.0); MCV 94.3 fL (80.0-100.0); Mean Platelet Volume 6.7; Monocytes # (A) 0.7 k/uL (0-1.0); Monocytes % (A) 5 %; Neutrophils # (A) 13.1 k/uL (1.3-7.7); Neutrophils % (A) 87 %; Platelet Count 299 k/uL (150-450); RBC 4.39 m/uL (3.80-5.40); RDW 12.9 % (11.5-15.5); WBC 15.2 k/uL (3.8-10.6)
[2023-11-21 13:45] LABS: INR 0.9 (<1.2); Partial Thromboplastin Time 24.8 sec (22.0-30.0); Prothrombin Time 10.3 sec (10.0-12.5)
[2023-11-21 13:49] LABS: ALT 21 U/L (4-34); AST 34 U/L (14-36); African American GFR (CKD) 62 (>60 ml/min/1.73 sqM); Albumin 4.4 g/dL (3.5-5.0); Alkaline Phosphatase 62 U/L (38-126); Anion Gap 11 mmol/L; Blood Urea Nitrogen 22 mg/dL (7-17); Calcium 9.4 mg/dL (8.4-10.2); Carbon Dioxide 23 mmol/L (22-30); Chloride 103 mmol/L (98-107); Glucose 140 mg/dL (74-99); Magnesium 1.7 mg/dL (1.6-2.3); Non-African American GFR(CKD) 54 (>60 ml/min/1.73 sqM); Potassium 4.5 mmol/L (3.5-5.1); Sodium 137 mmol/L (137-145); Total Bilirubin 0.8 mg/dL (0.2-1.3); Total Protein 7.3 g/dL (6.3-8.2)
--- NOTE | 2023-11-21 13:57 | XR ---
EXAMINATION TYPE: XR chest 2V DATE OF EXAM: 11/21/2023 COMPARISON: 12/30/2016 TECHNIQUE: PA and lateral views submitted. HISTORY: Chest pain FINDINGS: The lungs are clear and there is no pneumothorax, pleural effusion, or focal pneumonia. Heart size normal and no overt failure. Osseous structures demonstrate hypertrophic and degenerative changes of the spine. Postsurgical change in the shoulders. Subsegmental basilar atelectasis or scarring. Athero sclerotic change aorta. Biapical pleural thickening. IMPRESSION: 1. Favor basilar atelectasis over pneumonia. Recommend correlation clinically.
--- NOTE | 2023-11-21 17:55 | CT ---
EXAMINATION TYPE: CT chest angio for PE CT DLP: 341 mGycm, Automated exposure control for dose reduction was used. DATE OF EXAM: 11/21/2023 5:42 PM COMPARISON: Chest radiograph from same day. CLINICAL INDICATION: Female, 78 years old with history of Chest pain, NICOLE, abnormal x-ray; TECHNIQUE/CONTRAST: CTA scan of the thorax is performed with IV Contrast, patient injected with 80 mL of Isovue 370, MIP images are created and reviewed these are created on a separate workstation.. FINDINGS: Pulmonary Artery: There is no evidence for a filling defect within the pulmonary vasculature to sugge st acute pulmonary embolism. The pulmonary artery is of normal size. Lungs/Pleura: Scattered reticular opacities and groundglass opacities throughout the lungs. Some of w hich have somewhat tree-in-bud appearance involving the left lower lobe superior segment left upper l obe right middle lobe. No evidence of focal consolidation, pleural effusion or pneumothorax. Airway: Large airways are patent. Heart: Heart is within normal limits for size. Vasculature: No evidence of aortic aneurysm. Mediastinum: No gross evidence of adenopathy. Moderate hiatal hernia.e Musculoskeletal: No acute osseous abnormalities fixation changes to the shoulders with hardware prese nt and partially visualized. Soft Tissues/lymph nodes: Unremarkable. Lower neck: No significant findings. Upper Abdomen: Diffuse low-attenuation to the liver parenchyma.. IMPRESSION: 1. No evidence of pulmonary embolism. 2. Scattered interstitial opacities throughout the lungs correlate for atypical pneumonia. Short-term follow-up recommended to ensure resolution. 3. Moderate hiatal hernia. 4. Hepatic steatosis.
[2023-11-21 18:57] VITALS: BP 100/78; PULSE 70
[2023-11-21] MEDS: cefTRIAXone IN SWFI 1,000 MG/10 ML SYRINGE IVP STA (18:58)
[2023-11-21] MEDS: AZITHROMYCIN 500 MG TAB PO STA (19:02)
== END 2023-11-21 19:10 | disposition home or self-care (01) ==
LOC: EC 12:15
DX: J18.9 Pneumonia, unspecified organism (principal); Z87.891 Personal history of nicotine dependence; Z88.8 Allergy status to other drugs, medicaments and biological substances
CPT/HCPCS: 36415; 71046; 71275; 80053; 83735; 84484; 85025; 85610; 85730; 93005; 96374; 99284

== ENCOUNTER → 2024-09-24 | Outpatient (CLI) | payer MEDICARE ==
--- NOTE | 2024-09-24 15:17 | MR ---
EXAMINATION TYPE: MR knee LT wo con DATE OF EXAM: 09/24/2024 COMPARISON: Outside left knee x-ray September 22, 2024 HISTORY: left knee pain chronic for years. TECHNIQUE: Multiplanar, multisequence images of the knee is performed without IV contrast. FINDINGS: MEDIAL MENISCUS: Anterior and posterior horns are intact without tear. LATERAL MENISCUS: Abnormal signal anterior and posterior horns appears to extend to articular surface . CRUCIATE LIGAMENTS: The anterior and posterior cruciate ligaments are intact and unremarkable. COLLATERAL LIGAMENTS: The medial collateral ligament and lateral collateral ligament complex are inta ct and unremarkable. EXTENSOR MECHANISM: Visualized quadriceps and patellar tendons are intact. EFFUSION: Small size suprapatellar joint effusion. POPLITEAL CYST: Moderate size popliteal/evangelista cyst with some ill-defined fluid posteriorly suggesting leak. TRICOMPARTMENT SPACES: Moderate to severe narrowing and severe spurring lateral tibiofemoral compartm ent. Moderate spurring and narrowing medial tibiofemoral compartment. Severe narrowing with mild to m oderate spurring patellofemoral compartment CARTILAGE: Chondromalacia patella with full-thickness cartilaginous loss along the posterior patellar pole seen. Significant cartilaginous loss medial and lateral tibiofemoral compartments. BONE MARROW SIGNAL: Areas of heterogeneous increased T2 signal in the posterior patellar pole are see n. OTHER: No additional significant abnormality is appreciated. IMPRESSION: 1. Tricompartment degenerative changes with fairly advanced findings noted as detailed above. 2. Prominent full-thickness tears of the anterior and posterior horns of the lateral meniscus. 3. Small-sized suprapatellar joint effusion. 4. Moderate-sized leaking popliteal cyst. [facility], , 09/24/2024 3:15 PM
== END | disposition home or self-care (01) ==
LOC: RADMRIMAIN 13:58
PROVIDERS: ATTEND Orthopaedic Surgery
DX: M17.12 Unilateral primary osteoarthritis, left knee (principal); M25.462 Effusion, left knee; M71.22 Synovial cyst of popliteal space [Baker], left knee

== ENCOUNTER → 2024-10-07 | Outpatient (CLI) | payer MEDICARE ==
[2024-10-07 20:12] LABS: Basophils # (A) 0.04 X 10*3/uL (0.00-0.10); Basophils % (A) 0.6 %; Eosinophils # (A) 0.20 X 10*3/uL (0.04-0.35); Eosinophils % (A) 2.9 %; HCT 37.2 % (37.2-46.3); HGB 12.4 g/dL (12.0-15.0); Immature Grans, Automated 0.10 %; Lymphocytes # (A) 2.40 X 10*3/uL (0.90-5.00); Lymphocytes % (A) 35.2 %; MCH 31.4 pg (27.0-32.0); MCHC 33.3 g/dL (32.0-37.0); MCV 94.2 FL (80.0-97.0); Monocytes # (A) 0.60 X 10*3/uL (0.20-1.00); Monocytes % (A) 8.8 %; NRBC Per 100 WBC 0 X 10*3/uL (0.00-0.01); Neutrophils # (A) 3.57 X 10*3/uL (1.80-7.70); Neutrophils % (A) 52.4 %; Platelet Count 264 X 10*3/uL (140-440); RBC 3.95 X 10*6/uL (4.10-5.20); RDW 12.6 % (11.5-14.5); WBC 6.82 X 10*3/uL (4.50-10.00)
[2024-10-07 21:02] LABS: ALT 16 U/L (8-44); AST 20 U/L (13-35); Albumin 4.2 g/dL (3.8-4.9); Albumin/Globulin Ratio 1.62 Ratio (1.60-3.17); Alkaline Phosphatase 61 U/L (41-126); Anion Gap 12.10 mmol/L (4.00-12.00); BUN/Creat Ratio 18.40 Ratio (12.00-20.00); Blood Urea Nitrogen 18.4 mg/dL (9.0-27.0); Calcium 9.5 mg/dL (8.7-10.3); Carbon Dioxide 24.9 mmol/L (21.6-31.8); Chloride 102 mmol/L (96-109); Globulin 2.6 g/dL (1.6-3.3); Glucose 110 mg/dL (70-110); Magnesium 1.6 mg/dL (1.5-2.4); Potassium 4.9 mmol/L (3.5-5.5); Sodium 139 mmol/L (135-145); Total Protein 6.8 g/dL (6.2-8.2)
== END | disposition home or self-care (01) ==
LOC: LABPAT 12:59
PROVIDERS: ATTEND Orthopaedic Surgery
DX: Z01.812 Encounter for preprocedural laboratory examination (principal); M23.91 Unspecified internal derangement of right knee; I10 Essential (primary) hypertension
CPT/HCPCS: 80053; 83735; 85025